=== PATIENT | female | born 1970 | race Caucasian/White ===

== ENCOUNTER 2017-04-27 07:03 | Day surgery (SDC) | payer OTHER ==
[~2017-04-27] VITALS: Ht 167.6 cm; Wt 78.0 kg
[2017-04-27] MEDS ORDERED: BUPIVACAINE-MPF 0.25% 30 ML VIAL INJ ONE (09:16)
[2017-04-27] MEDS ORDERED: KETOROLAC 30 MG/ML VIAL IVP ONE (09:30)
[2017-04-27] MEDS ORDERED: DEXAMETHASONE 4 MG/ML VIAL IVP ONE (09:30)
[2017-04-27] MEDS ORDERED: ONDANSETRON 4 MG/2 ML VIAL IVP ONE (09:30)
[2017-04-27] MEDS ORDERED: SEVOFLURANE 250 ML BTL INH ONE (09:30)
[2017-04-27] MEDS ORDERED: PROPOFOL 200 MG/20 ML VIAL IV ONE (09:30)
[2017-04-27] MEDS ORDERED: fentaNYL 0.05 MG/ML VIAL ONE (09:41)
[2017-04-27] MEDS ORDERED: HYDROmorphone PFS 2 MG/ML SYR IVP PRN (10:45)
[2017-04-27] MEDS ORDERED: MORPHINE SULFATE 2 MG/ML SYR IVP PRN (10:45)
[2017-04-27] MEDS ORDERED: ONDANSETRON 4 MG/2 ML VIAL IV PRN (10:45)
[2017-04-27] MEDS ORDERED: MORPHINE SULFATE 4 MG/ML SYR IV PRN (10:45)
[2017-04-27] MEDS ORDERED: HYDROcodone/APAP 5/325 MG 1 TAB TAB PO PRN (10:45)
== END 2017-04-27 11:20 | disposition home or self-care (01) ==
LOC: MDS 07:03 → MMU 07:04 → MDS 11:20
PROVIDERS: ATTEND Surgery
DX: D17.1 Benign lipomatous neoplasm of skin and subcutaneous tissue of trunk (principal); E03.9 Hypothyroidism, unspecified
CPT/HCPCS: 21931; 71010; J0690; J1100; J1885; J2405; J2704; J3010; J3490; J7060; J7120